=== PATIENT | female | born 1940 | race Two or more races ===

== ENCOUNTER 2020-10-15 15:48 | Emergency (ER) | payer SELFPAY ==
[~2020-10-15] VITALS: Ht 154.9 cm; Wt 87.2 kg
--- NOTE | 2020-10-15 15:58 | NUR ---
TASK RN: PIV STARTED, LABS DRAWN. PT TO CT.
--- NOTE | 2020-10-15 15:59 | NUR ---
INTEGRATION MANAGER: PT ACCOMPAINED BY SON, REPORTS SHE HAS AFIB BUT NOT CURRENTLY ON BLOOD THINNERS.
[2020-10-15] MEDS ORDERED: SODIUM CHLORIDE FLUSH 10ML SYR IVF ONE (16:00)
[2020-10-15 16:02] LABS: BASOPHILS % (AUTO) 1 % (0-1); EOSINOPHILS % (AUTO) 0 % (1-7); LYMPHOCYTES % (AUTO) 38 % (22-44); MEAN CORPUSCULAR HEMOGLOBIN 30.1 pg (27.0-34.8); MEAN CORPUSCULAR HGB CONC 33.7 g/dL (32.4-35.8); MEAN PLATELET VOLUME 7.9 fL (7.4-10.4); MONOCYTES % (AUTO) 4 % (2-9); NEUTROPHILS % (AUTO) 57 % (42-75); PLATELET COUNT 257 x10^3/uL (130-400); RED BLOOD COUNT 4.72 x10^6/uL (3.82-5.3); RED CELL DISTRIBUTION WIDTH 14.8 % (9.6-15.2)
[2020-10-15 16:05] LABS: MD NO
[2020-10-15 16:22] LABS: INTERNATIONAL NORMALIZED RATIO 1.04 (0.93-1.1); PROTHROMBIN TIME 11.1 Seconds (9.6-11.5)
[2020-10-15] MEDS ORDERED: OMNIPAQUE 350 MG/ML, 75ML BOTTLE ONE (16:27)
[2020-10-15] MEDS ORDERED: PLEASE ENTER ALLERGIES MC SCH (16:30)
--- NOTE | 2020-10-15 16:35 | NUR ---
PT CANDIDATE FOR TPA. PT/SON CONCENT TO MEDICATION. TPA HELD D/T BP 185/95 AND CONSULT W VASCULAR.
[2020-10-15] MEDS ORDERED: LABETALOL 5MG/ML, 20ML ONE (16:44)
--- NOTE | 2020-10-15 16:49 | NUR ---
BLOOD PRESSURE 154/94.
[2020-10-15 16:50] VITALS: BP 152/85
--- NOTE | 2020-10-15 16:50 | NUR ---
IV ALTEPLASE BOLUS GIVEN
--- NOTE | 2020-10-15 16:51 | NUR ---
IV ALTEPLASE INFUSION STARTED
--- NOTE | 2020-10-15 16:59 | NUR ---
PT DEPARTED WITH [facility] AT 1700 tpa INFUSING.
[2020-10-15] MEDS ORDERED: ALTEPLASE 8 MG in SYRINGE 1 EA IVPush ONE (17:00)
[2020-10-15] MEDS ORDERED: ALTEPLASE IV ONE (17:00)
[2020-10-15] MEDS ORDERED: LABETALOL 5MG/ML, 20ML IVPush PRN (17:00)
[2020-10-15] MEDS ORDERED: ALTEPLASE 1 ML ONE (18:28)
--- NOTE | 2020-10-15 18:35 | NUR ---
LATE ENTRY: LABETALOL 10MG IV GIVEN FOR BP MANAGEMENT AND GOOD RESULT. TPA INITIATED PER PROTOCOL W TWO RN SIGN OFF. PT TRANSPORTED TO [facility].
== END 2020-10-15 18:42 ==
LOC: ED 16:30
DX: I63.311 Cerebral infarction due to thrombosis of right middle cerebral artery (principal); I48.20 Chronic atrial fibrillation, unspecified; I11.9 Hypertensive heart disease without heart failure; R94.31 Abnormal electrocardiogram [ECG] [EKG]
CPT/HCPCS: 36415; 37195; 70450; 70496; 70498; 71045; 80047; 82962; 85025; 85610; 85730; 93005; 96374; 99291; J2997; Q9967; 96365; 96375